=== PATIENT | male | born 1955 | race Caucasian/White ===

== ENCOUNTER 2020-10-13 21:25 | Emergency (ER) | payer BC ==
[2020-10-13 22:17] LABS: HEMOGLOBIN 15.5 gm/dl (14.0-17.5); RED BLOOD COUNT 4.96 M/UL (4.20-5.50); WHITE BLOOD COUNT 8.6 K/UL (4.5-11.0)
[2020-10-13 22:38] LABS: BUN/CREATININE RATIO 11 (0-10)
[2020-10-14] MEDS ORDERED: ASPIRIN CHEWABL81 MG PO (02:44)
== END 2020-10-14 03:00 | disposition home or self-care (01) ==
LOC: ER1 21:25
PROVIDERS: Physician Assistant
DX: R07.9 Chest pain, unspecified (principal); R41.82 Altered mental status, unspecified; Z90.49 Acquired absence of other specified parts of digestive tract
CPT/HCPCS: 70450; 70496; 70498; 71045; 80053; 82140; 82550; 82553; 83874; 83880; 84439; 84443; 84484; 85025; 85610; 85730; 93005; 99285; G0480; Q9967